=== PATIENT | male | born 1975 | race Hispanic/Latino ===

== ENCOUNTER → 2018-05-23 | Outpatient (CLI) | payer OTHER ==
--- NOTE | 2018-05-23 12:33 | Diagnostic Imaging Report ---
Exam: Testicular ultrasound. Clinical History: Left testicular pain Findings: Sonographic evaluation of the testicles. Both testes are normal in echogenicity and size without intratesticular mass. Normal doppler flow is demonstrated bilaterally. No hydrocele bilaterally. Bilateral varicoceles are noted, left greater than right, which increase in prominence with Valsalva maneuver. There are two right anechoic epididymal cysts measuring 0.3 x 0.4 cm and 0.3 x 0.3 cm. Both epididymides are otherwise normal in appearance. The right testicle measures 5.8 x 2.3 x 3.8 and the left testicle measures 5.6 x 2.4 x 3.4 cm. The right epididymis measures 1.3 x 1 x 1 cm and the left epididymis measures 1.1 x 1 x 1 cm. Impression: Bilateral varicoceles, left greater than right. No sonographic evidence of testicular torsion. Right epididymal cysts. Signed by: Dr. Tracie Barker MD on 05/23/2018 12:29 PM
== END ==
LOC: US 10:32
PROVIDERS: ATTEND Internal Medicine
DX: N50.812 Left testicular pain (principal)
CPT/HCPCS: 76870; 93976